=== PATIENT | male | born 1990 | race Caucasian/White ===

== ENCOUNTER 2016-03-25 14:22 | Emergency (ER) | payer SELFPAY ==
[2016-03-25 14:38] VITALS: BP 117/84; PULSE 91; RESP 16; TEMP 98.8; O2SAT 100
[2016-03-25] MEDS ORDERED: IBUPROFEN 600 MG TAB PO ONE (14:51)
--- NOTE | 2016-03-25 15:18 | EDPHY ---
ED Progress Note Narrative: The patient left the emergency department prior to physician evaluation but after medical screening exam
== END 2016-03-25 15:20 | disposition left against medical advice (07) ==
DX: Z53.21 Procedure and treatment not carried out due to patient leaving prior to being seen by health care provider (principal)

== ENCOUNTER 2016-03-25 20:52 | Emergency (ER) | payer MEDICAID, OTHER ==
[2016-03-25 20:56] VITALS: TEMP 97.7
[2016-03-25] MEDS ORDERED: IBUPROFEN 600 MG TAB PO ONE (21:55)
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
[2016-03-25] MEDS ORDERED: HYDROCOD/APAP 5/325 PREPACK#6 BTL TAKEHOME ONE (23:16)
[2016-03-25 23:58] VITALS: BP 125/85; PULSE 90; RESP 20; O2SAT 95
== END 2016-03-25 23:30 | disposition home or self-care (01) ==
DX: S43.402A Unspecified sprain of left shoulder joint, initial encounter (principal); S16.1XXA Strain of muscle, fascia and tendon at neck level, initial encounter; Y04.8XXA Assault by other bodily force, initial encounter

== ENCOUNTER 2016-03-29 14:11 | Emergency (ER) | payer OTHER ==
[2016-03-29 14:16] VITALS: O2SAT 96
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
[2016-03-29 15:56] VITALS: BP 131/72; PULSE 89; RESP 20; TEMP 98.6
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
== END 2016-03-29 16:01 | disposition home or self-care (01) ==
DX: S46.812A Strain of other muscles, fascia and tendons at shoulder and upper arm level, left arm, initial encounter (principal); Y09 Assault by unspecified means